=== PATIENT | female | born 1985 | race Caucasian/White ===

== ENCOUNTER 2020-02-05 04:19 | Inpatient (IN) | payer BC ==
[2020-02-05] VITALS (10 sets, daily range): BP systolic 97–138; BP diastolic 52–90; PULSE 57–77; TEMP 97.6–98.2
[~2020-02-05] VITALS: Ht 175.3 cm; Wt 80.9 kg
--- NOTE | 2020-02-05 04:10 | NUR ---
HERE FOR LABOR CHECK 8100/0. INTACT BULGING BAG. FEELS PELVIC PRESSURE. DR QUIROS NOTIFIED TO COME IMMEDIATELY FOR DELIVERY. EFEM ON IV START. HS NOTIFIED OF HISTORY OF DRY COUGH BUT NOT SEEM BY PCP YET. NO FEVER OR KNOWN EXPOSURE OR SOB. NON PUI. 0444 DR QUIROS HERE. NSY ATTENDING- PATIENT COACHED THRU CTXS BY Brandin BARKER ,0447 AR[address] CLEAR. 0449 MALE TO MOTHERS ABDOMEN. LIDOCCCAINE FOR 1ST DEGREE REPAIR
--- NOTE | 2020-02-05 04:53 | NUR ---
Placenta delivers spont and intact, Pitocin bolus started.
[2020-02-05] MEDS ORDERED: PRENATAL MVI (05:46)
--- NOTE | 2020-02-05 07:00 | NUR ---
Patient up to bathroom with RN standby assist. Patient voids without difficulty. Pericare performed, underwear and peripad in place. Gown changed. Patient to Room 207 via wheelchair. Oriented to room and plan of care. Encouraged to rest. Call light within reach.
[2020-02-05 11:31] LABS: BASO % 0.2 % (0.0-2.0); EOS % 0.1 % (0-4.0); GRAN # 16.6 (1.4-6.5); GRAN % 90.5 % (42.2-75.2); LYMPH % 5.4 % (20.0-51.0); MEAN CELL VOLUME 100 fl (80.0-100.0); MEAN CORPUSCULAR HGB CONC 33 g/dl (33.0-37.0); MONO # 0.6 (0.1-0.6); MONO % 3.2 % (1.7-9.3); PLATELET COUNT 264 K/mm3 (130-400); RED BLOOD COUNT 3.28 M/mm3 (4.10-5.30); REDCELL DISTRIBUTION WIDTH-CV 13.5 % (11.5-14.5)
[2020-02-05 11:33] LABS: HEMATOCRIT 32.8 % (37.0-47.0); HEMOGLOBIN 10.8 g/dl (12.5-16.0); MEAN CORPUSCULAR HEMOGLOBIN 33 pg (27.0-31.0)
[2020-02-06] MEDS ORDERED: IBU600 MG PO (09:46)
[2020-02-06 10:12] VITALS: BP 107/44; PULSE 75; TEMP 97.8
== END 2020-02-06 14:10 | disposition home or self-care (01) | DRG 807 ==
LOC: LDRO 04:19 → LDR 04:45 → OB 07:45
PROVIDERS: ADMIT Student in an Organized Health Care Education/Training Program
PROC: 10E0XZZ Delivery of Products of Conception, External Approach (ICD-10-PCS; principal; 2020-02-05)
PROC: 0HQ9XZZ Repair Perineum Skin, External Approach (ICD-10-PCS; 2020-02-05)
DX: O99.02 Anemia complicating childbirth (principal); Z37.0 Single live birth; D64.9 Anemia, unspecified; O70.0 First degree perineal laceration during delivery; Z3A.39 39 weeks gestation of pregnancy
CPT/HCPCS: J2590